=== PATIENT | male | born 1970 | race Caucasian/White ===

== ENCOUNTER → 2020-03-15 | Outpatient (CLI) | payer OTHER | LOC: RAD 16:59 | DX: S30.0XXA Contusion of lower back and pelvis, initial encounter (principal); M47.812 Spondylosis without myelopathy or radiculopathy, cervical region; M48.02 Spinal stenosis, cervical region; M47.814 Spondylosis without myelopathy or radiculopathy, thoracic region; M47.817 Spondylosis without myelopathy or radiculopathy, lumbosacral region; M25.78 Osteophyte, vertebrae; X58.XXXA Exposure to other specified factors, initial encounter | CPT/HCPCS: 72050; 72072; 72110 ==

== ENCOUNTER → 2021-05-27 | Outpatient (CLI) | payer BC | LOC: US 16:30 | DX: R60.9 Edema, unspecified (principal) | CPT/HCPCS: 93970 ==

== ENCOUNTER → 2021-06-06 | Outpatient (CLI) | payer BC | LOC: CT 13:41 | DX: R60.9 Edema, unspecified (principal) | CPT/HCPCS: Q9967 ==